=== PATIENT | female | born 1975 | race Caucasian/White ===

== ENCOUNTER 2023-04-05 07:46 | Emergency (ER) | payer BC, OTHER, SELFPAY ==
[2023-04-05 07:48] VITALS: BP 125/79; PULSE 85; RESP 17; TEMP 36.7; O2SAT 99; BMI 25.7
--- NOTE | 2023-04-05 07:50 | PC.NURSE ---
ED MD AT BEDSIDE
--- NOTE | 2023-04-05 07:56 | HMH.EDGENADL ---
Discharge Plan Disposition Patient Disposition: Home, Self-Care Condition: Fair Referrals Follow up/Referrals: Tylor Grimm [Primary Care Provider] - See instructions Activity Restrictions/Add. Instructions Additional Instructions/Restrictions: You have been evaluated for headache, likely due to migraine. Please monitor your symptoms closely. Continue taking all medications as prescribed. Follow-up with your primary care doctor in 1 to 2 days for symptom recheck. Return to the emergency department at once for any new or worsening symptoms Clinical Impressions Clinical Impression: Migraine Instructions Patient Instructions: DI for Migraine Discharge ED Provider: Debbie Montes De Oca Adult HPI General Chief complaint: Headache Stated complaint: Headache X 4 days,high BP Time Seen by Provider: 04/05/23 07:49 Mode of Arrival: Ambulatory Source of Information: Patient Limitations: No Limitations History of Present Illness HPI narrative: 48-year-old female presenting to the emergency department with headache. Headache described as frontal, throbbing. Started 4 days ago. She believes it was triggered by cleaning chemicals at work. Has been constant since onset. She is having difficulty sleeping. She has sensitivity to lights. Wears sunglasses. She has tried her abortive sumatriptan without relief. Was evaluated at a clinic yesterday where she received Toradol. Helped for a few hours, but then headache returned. She is suffers from migraine headaches for the last 25 years. Her PCP prescribes her migraine headaches. She uses a once monthly injection medication and abortive medication as needed. She denies history of hypertension or diabetes. She has had CTs and MRIs in the past. No fevers, chills, vomiting, sore throat, ear pain, abdominal pain. Related Data Allergies Allergy/AdvReac Type Severity Reaction Status Date / Time Penicillins Allergy Verified 04/05/23 08:00 [facility] Disclaimer: The information contained in this section may have been updated after the patient was seen, as this information can be updated by other users. Medical History (Updated 04/05/23 @ 09:17 by Debbie Montes De Oca DO) Anxiety Depression Surgical History (Updated 04/05/23 @ 08:07 by Naa Mary RN) H/O gastric sleeve H/O tubal ligation Family History (Updated 04/05/23 @ 08:07 by Naa Mary RN) Other No significant family history Social History (Updated 04/05/23 @ 08:07 by Naa Mary RN) Smoking Status: Never smoker alcohol intake: never current occupational status: employed Travel in the last 8 weeks: None ROS Obtained: Yes All systems reviewed & no additional complaints except as documented Constitutional Constitutional: Denies body ache, Denies chills, Denies fever(s) and Reports headache(s) Eyes Eyes: Denies blurry vision, Denies loss of vision and Reports sensitivity to light ENT Ears, Nose, Mouth, and Throat: Denies dizziness, Reports headache(s), Denies neck pain and Denies sore throat Cardiovascular Cardiovascular: Denies chest pain, Denies dyspnea, Denies palpitations and Denies syncope Respiratory Respiratory: Denies cough and Denies dyspnea Gastrointestinal Gastrointestingal: Denies abdominal pain or vomiting Musculoskeletal Musculoskeletal: Denies neck pain Integumentary/Breasts Skin/Breast: Denies redness and Denies rash Neurologic Neurologic: Denies dizziness, Reports headache(s), Denies loss of vision and Denies syncope Endocrine Endocrine: Denies palpitations Physical Exam General General appearance: alert and in no apparent distress Head Head exam: atraumatic and normocephalic Eye Eye exam: Present normal appearance, PERRL and EOMI; Absent conjunctival redness ENT ENT exam: Present normal exam, normal oropharynx and mucous membranes moist Neck Neck exam: Present normal inspection; Absent tenderness or meningismus Respiratory Respiratory exam: Present nor
[2023-04-05 08:13] LABS: Basophils % 0.5 % (0.1-2.0); Eosinophils # 0.2 K/mm3 (0.0-0.4); Eosinophils % 3.6 % (0.1-12.0); Hematocrit 41.3 % (37.0-47.0); Hemoglobin 13.5 g/dL (12.2-16.2); Lymphocytes # 1.2 K/mm3 (0.7-4.5); Lymphocytes % 19.7 % (10-50); Mean Corpuscular HGB Conc 32.7 g/dL (31.8-35.4); Mean Corpuscular Hemoglobin 30.5 pg (27.0-31.2); Mean Corpuscular Volume 93.2 fl (81-99); Mean Platelet Volume 8.1 fl (7.4-10.4); Monocytes # 0.4 K/mm3 (0.1-1.0); Monocytes % 6.1 % (1.7-9.3); Neutrophils # 4.2 K/mm3 (1.8-7.8); Neutrophils % 70.1 % (37.0-80.0); Platelet Count 157 K/mm3 (142-424); Red Blood Count 4.43 M/mm3 (4.20-5.40); Red Cell Distribution Width 13.3 % (11.5-17.5)
[2023-04-05 08:16] LABS: Chloride 112 mmol/L (98-107)
[2023-04-05 08:17] LABS: Potassium 3.6 mmoL/L (3.5-5.1); Sodium 144 mmol/L (136-145)
[2023-04-05 08:19] LABS: Alanine Aminotransferase 22 U/L (12-78); Alkaline Phosphatase 67 U/L (38-126); Aspartate Amino Transferase 26 U/L (14-36); Bilirubin,Total 0.7 mg/dl (0.2-1.3); Blood Urea Nitrogen 10 mg/dl (7-17); Creatinine Clearance Estimated 84 mL/min (50-200); Estimated Glomerular Filt Rate 67 ml/min (>60); GFR (African American) 82 ML/MIN (>60)
--- NOTE | 2023-04-05 08:19 | PC.NURSE ---
PT MEDICATED PER EMAR, CALL LIGHT WITHIN REACH, LIGHTS DIMMED. PT WITHOUT NEEDS
[2023-04-05 08:20] LABS: Albumin Level 3.9 g/dl (3.5-5.0); Albumin/Globulin Ratio 1.4 (1.1-1.8); Anion Gap 13.6 mEq/L (5-15); Calcium 8.6 mg/dl (8.4-10.2); Carbon Dioxide 22 mmol/L (22.0-30.0); Globulin 2.8 g/dL (1.3-3.2); Glucose 99 mg/dl (74-100); Total Protein,Serum 6.7 g/dl (6.3-8.2)
[2023-04-05 08:30] VITALS: BP 103/57; PULSE 74; RESP 20; O2SAT 98
--- NOTE | 2023-04-05 08:32 | PC.NURSE ---
ROUNDED ON PT, RESTING WITH EYES CLOSED. AWAKENS EASILY. NO NEEDS VOIDED
--- NOTE | 2023-04-05 09:14 | PC.NURSE ---
ED MD AT BEDSIDE TO REEVALUATE PT
--- NOTE | 2023-04-05 09:28 | PC.NURSE ---
PT GIVEN DRINK
--- NOTE | 2023-04-05 09:29 | PC.NURSE ---
ED MD AT BEDSIDE TO UPDATE PT ON POC
[2023-04-05 09:40] VITALS: BP 107/75; PULSE 62; RESP 16; TEMP 36.7; O2SAT 98
== END 2023-04-05 09:40 | disposition home or self-care (01) ==
PROVIDERS: Emergency Provider Emergency Medicine; PCP Family Medicine
DX: G43.909 Migraine, unspecified, not intractable, without status migrainosus (principal); F41.9 Anxiety disorder, unspecified; F32.A Depression, unspecified
CPT/HCPCS: 80053; 85025; 96361; 96374; 96375; 99284